=== PATIENT | male | born 1945 | race Caucasian/White ===

== ENCOUNTER 2017-02-25 11:18 | Emergency (ER) | payer OTHER ==
[~2017-02-25] VITALS: Ht 170.2 cm; Wt 109.1 kg
[~2017-02-25 11:18] MED LIST: CMD25 PO; CMD5 PO; CPR500 PO; CYAN100020 PO; FOLI1TAB7 PO; LISI20TA PO; MGNO400 PO; MTR500 PO; TPRSR25 PO
[2017-02-25 11:23] VITALS: TEMP 36.6; Ht 170.2 cm; Wt 109.1 kg
[2017-02-25] MEDS ORDERED: WARF5TAB7 PO ×2 (11:34)
[2017-02-25] MEDS ORDERED: LISI-787 PO (11:34)
--- NOTE | 2017-02-25 12:17 | EMERGENCY ROOM VISIT NOTE ---
History Report prepared by Tarsha: Eliane Wheeler Under the Supervision of: Dr. Darren Hines M.D. First contact with patient: 12:03 Chief Complaint: LA PAIN Stated Complaint: LOWER LEG INJURY-LEFT LA History of Present Illness The patient is a 72 year old male who presents to the Emergency Room with complaints of persistent left la pain that began six days ago. He currently rates his discomfort as a 5/10 in severity. The patient states that Wednesday he was in the bathroom and slipped, noting that he hit is left la off of the bathtub. He states that he has a history of previous pulmonary emboli, noting that he is on Coumadin. The patient states that he has been walking normally and denies any imaging of the area. He denies any head injury, loss of consciousness, shortness of breath, or abdominal pain. The patient states that he was at [facility] today and was sent to the emergency department for further evaluation. Source of History: patient, spouse/significant other Onset: six days ago Position: other (left la) Symptom Intensity: 5/10 Timing: other (persistent) Associated Symptoms: No LOC, No SOB, No abdominal pain Review of Systems See HPI for pertinent positives & negatives. A total of 10 systems reviewed and were otherwise negative. Past Medical & Surgical Medical Problems: (1) H/O blood clots (2) HTN (hypertension) Old medical records were reviewed. Nurse's notes were reviewed and I agree with. Family History Hypertension Social History Smoking Status: Never Smoker Drug Use: none Marital Status: Housing Status: lives with significant other Occupation Status: retired Current/Historical Medications Scheduled Cyanocobalamin (Vitamin B12), 1 TAB PO DAILY Folic Acid (Folvite), 1 MG PO DAILY Lisinopril/Hctz (Zestoretic 20MG/12.5MG), 1 TAB PO DAILY Metoprolol Succinate (Metoprolol Succinate ER), 25 MG PO QAM Warfarin Sod (Jantoven), 5 MG PO WK Warfarin Sod (Jantoven), 2.5 MG PO [id number] Allergies Coded Allergies: No Known Allergies (Unverified , 09/05/15) Physical Exam Vital Signs Date Time Temp Pulse Resp B/P (MAP) Pulse Ox O2 Delivery O2 Flow Rate FiO2 02/25/17 15:08 73 20 143/87 98 02/25/17 14:00 81 20 149/89 94 Room Air 02/25/17 11:23 36.6 80 17 150/77 96 Room Air Physical Exam General: Well developed well nourished non-ill appearing older male, in no acute distress, breathing comfortably on room air. Normal speech HEENT: Normal cephalic atraumatic. Pupils are equal round and reactive to light. Sclerae anicteric. Extraocular movements are intact. Oropharynx is pink with moist mucous membranes. No swelling of the mouth lips or tongue. Neck: Supple with a midline trachea. No meningeal signs or stiffness, no JVD or bruits. No Stridor. Chest: Clear to auscultation bilaterally. No wheezes or rhonchi. No increased work of breathing. Heart: regular rate and rhythm. Abdomen: Soft nontender, nondistended without rebound guarding or rigidity. Extremities: Left lower extremity has bruising and swelling of the la. Foot is pink and well perfused. Normal motor, sensation, and pulses. No cyanosis clubbing or edema. No calf tenderness or assymetry Spine/Back. Non tender to palpation. No CVA tenderness Skin: Good turgor without rashes. Neurologic exam: Cranial nerves two through 12 are intact. Motor and sensation are intact and symmetrical throughout. Medical Decision & Procedures ER Provider Diagnostic Interpretation: Radiology results as stated below per my review and radiologist interpretation: LEFT LOWER EXTREMITY VENOUS DOPPLER HISTORY: Leg swelling/pain COMPARISON STUDY: None. FINDINGS: There is normal compressibility, flow, and augmentation within the left lower extremity deep venous system. There is a 4.3 x 3.3 x 2.4 cm complex fluid collection within the anterior distal lower leg. IMPRESSION: No DVT within the left lower extremity. A 4.3 x 3.2 x 2.4 cm complex fluid collection within the anterior distal lower leg. This likely represents a hematoma. Electronically signed by: Vamsi Florence M.D. 02/25/2017 1:58 PM Dictated Date/Time: 02/25/2017 1:57 PM Laboratory Results 02/25/17 12:43 Red Blood Count 4.36, Mean Corpuscular Volume 102.3, Mean Corpuscular Hemoglobin 34.9, Mean Corpuscular Hemoglobin Concent 34.1, Mean Platelet Volume 9.3, Neutrophils (%) (Auto) 63.2, Lymphocytes (%) (Auto) 19.2, Monocytes (%) ( Auto) 14.3, Eosinophils (%) (Auto) 1.9, Basophils (%) (Auto) 0.8, Neutrophils # (Auto) 7.38, Lymphocytes # (Auto) 2.24, Monocytes # (Auto) 1.67, Eosinophils # ( Auto) 0.22, Basophils # (Auto) 0.09 02/25/17 12:43 02/25/17 13:30 Test 02/25/17 12:43 02/25/17 13:30 White Blood Count 11.67 K/uL (4.8-10.8) Red Blood Count 4.36 M/uL (4.7-6.1) Hemoglobin 15.2 g/dL (14.0-18.0) Hematocrit 44.6 % (42-52) Mean Corpuscular Volume 102.3 fL (80-100) Mean Corpuscular Hemoglobin 34.9 pg (25-34) Mean Corpuscular Hemoglobin Concent 34.1 g/dl (32-36) Platelet Count 254 K/uL (130-400) Mean Platelet Volume 9.3 fL (7.4-10.4) Neutrophils (%) (Auto) 63.2 % Lymphocytes (%) (Auto) 19.2 % Monocytes (%) (Auto) 14.3 % Eosinophils (%) (Auto) 1.9 % Basophils (%) (Auto) 0.8 % Neutrophils # (Auto) 7.38 K/uL (1.4-6.5) Lymphocytes # (Auto) 2.24 K/uL (1.2-3.4) Monocytes # (Auto) 1.67 K/uL (0.11-0.59) Eosinophils # (Auto) 0.22 K/uL (0-0.5) Basophils # (Auto) 0.09 K/uL (0-0.2) RDW Standard Deviation 53.8 fL (36.4-46.3) RDW Coefficient of Variation 14.5 % (11.5-14.5) Immature Granulocyte % (Auto) 0.6 % Immature Granulocyte # (Auto) 0.07 K/uL (0.00-0.02) Anion Gap 8.0 mmol/L (3-11) Est Creatinine Clear Calc Drug Dose 77.5 ml/min Estimated GFR () 86.2 Estimated GFR (Non- 74.3 BUN/Creatinine Ratio 21.6 (10-20) Calcium Level 9.4 mg/dl (8.5-10.1) Prothrombin Time 35.3 SECONDS (9.0-12.0) Prothromb Time International Ratio 3.1 (0.9-1.1) Activated Partial Thromboplast Time 43.5 SECONDS (21.0-31.0) Partial Thromboplastin Ratio 1.7 Chemistry Specimen Hemolysis Laboratory studies as stated above per my review. Medications Administered Medications (Trade) Dose Ordered Sig/Lauren Route Start Time Stop Time Status Last Admin Dose Admin Ondansetron HCl (Zofran Inj) 4 mg NOW STAT IV 02/25/17 12:32 02/25/17 12:33 DC 02/25/17 12:48 4 MG Morphine Sulfate (MoRPHine SULFATE INJ) 2 mg NOW STAT IV 02/25/17 12:32 02/25/17 12:33 DC 02/25/17 12:49 2 MG ED Course 1208: Past medical records reviewed. The patient was evaluated in room C1B, and a complete history and physical examination were performed. 1230: I reevaluated the patient and he is requesting pain medications. 1232: Ordered Morphine Sulfate 2 mg IV, Zofran Inj 4 mg IV. 1450: I reevaluated the patient and he is doing well. I discussed all the exam findings with him and I discussed the treatment plan. He verbalized complete understanding and agreement. He is ready to go home. Medical Decision Differentials include, but are not limited to; hematoma, DVT, compartment syndrome, infection. Medication Reconciliation: I attest that I have personally reviewed the patient' s current medication list. Blood Pressure Screening: Patient was found to have a slightly elevated blood pressure due to circumstances. I do not believe that the patient requires hypertension monitoring. This patient comes in as described above. He injured his leg several days ago and has had a hematoma. He has no evidence to suggest compartment syndrome on exam. He is on Coumadin. Ultrasounds obtained and shows no DVT does have a hematoma there. His INR is therapeutic at 3.1 and may be slightly supratherapeutic. He is not anemic. He has no acute electrolyte or metabolic abnormalities. He feels good and would like to go home. He should continue the current doses of Coumadin but he could eat a salad tonight to bring it down slightly. Again, he has no evidence of compartment syndrome. He should rest ice and elevate. return if: Pain in his toes, numbness or weakness, fever or chills, any new problems or concerns. He was happy with the plan discharge home and she follows regular doctor for recheck in the next couple days. Impression Primary Impression: Hematoma of left lower extremity Additional Impression: Current use of alf anticoagulation Scribe Attestation The scribe's documentation has been prepared under my direction and personally reviewed by me in its entirety. I confirm that the note above accurately reflects all work, treatment, procedures, and medical decision making performed by me. Departure Information Dispostion Home / Self-Care Referrals Bi Urbina, D.O. (PCP) Forms HOME CARE DOCUMENTATION FORM, IMPORTANT VISIT INFORMATION, WORK / SCHOOL INSTRUCTIONS Patient Instructions My [facility] Additional Instructions Rest. Drink plenty of fluids. Ice and elevate and try to stay off of your leg Return if increasing pain or swelling, pain or swelling and your toes or discoloration, fever or chills, any new problems concerns Have your doctor recheck in the next couple days. Your INR slightly elevated at 3.1. Have a salad tonight. Problem Qualifiers
[2017-02-25] MEDS ORDERED: MoRPHine SULFATE 2 MG/ML CARP IV STA (12:32)
[2017-02-25] MEDS ORDERED: ONDANSETRON INJ 2 MG/ML 2 ML VIAL IV STA (12:32)
[2017-02-25 12:53] LABS: BASO % 0.8 %; BASO ABS # 0.09 K/uL (0-0.2); COMPLETE YES; EOS % 1.9 %; HEMATOCRIT 44.6 % (42-52); IG% 0.6 %; LYMPH % 19.2 %; LYMPH ABS # 2.24 K/uL (1.2-3.4); MEAN CELL VOLUME 102.3 fL (80-100); MEAN CORPUSCULAR HEMOGLOBIN 34.9 pg (25-34); MEAN CORPUSCULAR HGB CONC 34.1 g/dl (32-36); MEAN PLATELET VOLUME 9.3 fL (7.4-10.4); MONO % 14.3 %; NEUT % 63.2 %; PLATELET COUNT 254 K/uL (130-400); RED BLOOD COUNT 4.36 M/uL (4.7-6.1); WHITE BLOOD COUNT 11.67 K/uL (4.8-10.8)
[2017-02-25 13:40] LABS: BLOOD UREA NITROGEN 22 mg/dl (7-18); GLUCOSE 90 mg/dl (70-99)
[2017-02-25 13:41] LABS: BUN/CREATININE RATIO 21.6 (10-20); CALCIUM 9.4 mg/dl (8.5-10.1); CARBON DIOXIDE 27 mmol/L (21-32); CHLORIDE 105 mmol/L (98-107); SODIUM 138 mmol/L (136-145)
--- NOTE | 2017-02-25 13:59 | DIAGNOSTIC IMAGING REPORT ---
LEFT LOWER EXTREMITY VENOUS DOPPLER HISTORY: Leg swelling/pain COMPARISON STUDY: None. FINDINGS: There is normal compressibility, flow, and augmentation within the left lower extremity deep venous system. There is a 4.3 x 3.3 x 2.4 cm complex fluid collection within the anterior distal lower leg. IMPRESSION: No DVT within the left lower extremity. A 4.3 x 3.2 x 2.4 cm complex fluid collection within the anterior distal lower leg. This likely represents a hematoma. Electronically signed by: Vamsi Florence M.D. 02/25/2017 1:58 PM Dictated Date/Time: 02/25/2017 1:57 PM
[2017-02-25 14:03] LABS: INR 3.1 (0.9-1.1); PARTIAL THROMBOPLASTIN RATIO 1.7; PROTHROMBIN TIME (PATIENT) 35.3 SECONDS (9.0-12.0)
[2017-02-25 14:10] LABS: POTASSIUM 4.3 mmol/L (3.5-5.1)
[2017-02-25 15:08] VITALS: BP 143/87; PULSE 73; O2SAT 98
== END 2017-02-25 15:10 | disposition home or self-care (01) ==
LOC: C.EDB 11:21 → C.EDC 15:10
DX: S80.12XA Contusion of left lower leg, initial encounter (principal); W01.0XXA Fall on same level from slipping, tripping and stumbling without subsequent striking against object, initial encounter; Y92.012 Bathroom of single-family (private) house as the place of occurrence of the external cause; I10 Essential (primary) hypertension; Z86.718 Personal history of other venous thrombosis and embolism; Z82.49 Family history of ischemic heart disease and other diseases of the circulatory system; Z79.01 Long term (current) use of anticoagulants; Z79.899 Other long term (current) drug therapy

== ENCOUNTER 2021-09-20 18:58 | Inpatient (IN) ==
[2021-09-20] MEDS ORDERED: SODIUM CHLORIDE 0.9% 500 ML IV STA (19:16)
[2021-09-20] MEDS ORDERED: ONDANSETRON INJ 2 MG/ML 2 ML VIAL IV STA (19:16)
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
[2021-09-20] MEDS: MoRPHine SULFATE 4 MG/ML 1 ML CARP\\VIAL IV PRN ×2 (20:06→21:12)
[2021-09-20 20:21] LABS: Basophils # (auto) 0.04 K/uL (0-0.2); Basophils % (auto) 0.2 %; Eosinophils # (auto) 0.01 K/uL (0-0.5); Hematocrit (blood only) 46.2 % (42-52); Hemoglobin 15.5 g/dL (14.0-18.0); Immature Granulocytes # (auto) 0.07 K/uL (0.00-0.02); Immature Granulocytes % (auto) 0.3 %; Lymphocytes # (auto) 0.79 K/uL (1.2-3.4); Lymphocytes % (auto) 3.7 %; Mean Corpuscular Hemoglobin 34.5 pg (25-34); Mean Corpuscular Hgb Conc 33.5 g/dL (32-36); Mean Corpuscular Volume 102.9 fL (80-100); Mean Platelet Volume 9.7 fL (7.4-10.4); Monocytes # (auto) 1.43 K/uL (0.11-0.59); Monocytes % (auto) 6.7 %; Neutrophils # (auto) 18.86 K/uL (1.4-6.5); Neutrophils % (auto) 89.1 %; Platelet Count 272 K/uL (130-400); RDW Coefficient of Variation 15.1 % (11.5-14.5); RDW Standard Deviation 57.1 fL (36.4-46.3); Red Blood Count 4.49 M/uL (4.7-6.1)
--- NOTE | 2021-09-20 20:28 | XRay Report ---
XR chest 1V portable CLINICAL HISTORY: Abdominal pain. Evaluate lung bases. COMPARISON STUDY: 09/05/2015 TECHNIQUE: 1 view of the chest FINDINGS: Single frontal view of the chest demonstrates the cardiomediastinal silhouette to be within normal li mits. There is a decreased inspiratory effort with elevation of the hemidiaphragms and crowding of th e bronchovascular markings at the lung bases and centrally. The lungs are clear of alveolar opacities . Calcified pleural plaque is again seen on the right. There is no evidence for pleural effusion. The re is no evidence for vascular congestion. There is no acute osseous pathology. IMPRESSION: There is a decreased inspiratory effort with otherwise no acute chest disease. ACT 112: Negative or not required by law. Electronically signed by: Fernando Aragon M.D. 09/20/2021 8:27 PM
[2021-09-20] MEDS ORDERED: OPTIRAY 320 100ml IV ONE (20:31)
[2021-09-20 20:41] LABS: Troponin I < 0.03 ng/ml (0-0.04)
[2021-09-20] MEDS ORDERED: PIPERACILLIN/TAZOBACTAM 4.5 GM/120 ML BAG IV ONE (20:41)
[2021-09-20] MEDS ORDERED: PIPERACILL/TAZOBAC CONSULT ACTIVE PRN (20:41)
[2021-09-20 20:43] LABS: Alanine Aminotransferase 14 U/L (7-52); Albumin Globulin Ratio 1.1 (0.9-2); Albumin Level 4.1 gm/dl (3.4-5.0); Alkaline Phosphatase 74 U/L (34-104); Anion Gap 11 (3-11); Aspartate Aminotransferase 15 U/L (13-39); BUN Creatinine Ratio 18.4 (10-20); Bilirubin,Total 0.5 mg/dl (0.2-1.0); Blood Urea Nitrogen 21 mg/dl (6-23); Carbon Dioxide 26 mmol/L (21-32); Chloride 102 mmol/L (98-107); Creatinine Clr Calc Pharmacy 64.9 ml/min; Est GFR (African American) 71.5 ml/min; Est GFR (Non-African American) 61.7 ml/min; Globulin 3.6 gm/dl (2.5-4.0); Glucose 174 mg/dl (70-99); Lipase 17 U/L (11-82); Potassium 4.2 mmol/L (3.5-5.1); Sodium 139 mmol/L (136-145); Total Protein 7.7 gm/dl (6.0-8.3)
[2021-09-20 20:50] LABS: INR 4.7 (0.9-1.1); Partial Thromboplastin Ratio 1.9; Prothrombin Time 42.3 Seconds (9.0-12.0)
--- NOTE | 2021-09-20 20:55 | CT Scan Report ---
CT abd pelvis IV con only CLINICAL HISTORY: Abdominal pain COMPARISON STUDY: 09/05/2015 CT DOSE: 1612.48 mGy.cm TECHNIQUE: Standard CT of the Abdomen and Pelvis was performed with IV contrast. A dose lowering pedro luis hnique was utilized adhering to the principles of ALARA. Contrast Volume: Optiray 320, 96 ml. The patient did not receive oral contrast. FINDINGS: Lung base: There are old rib fractures seen at the right lung base posteriorly with adjacent pleural scarring. The lung bases are otherwise clear. The heart is mildly enlarged with coronary artery calci fication. This also mitral valve calcification versus mitral valve replacement. Abdominal cavity: There is diastases of the anterior abdominal wall muscles with ventral herniation o f the bowel loops and viscera anteriorly. This is unchanged. There is no evidence for abdominal mass, adenopathy or ascites. Liver: There is homogeneous attenuation of the liver parenchyma. There is no evidence for enhancing m ass lesion. Spleen: There is homogeneous attenuation of the splenic parenchyma. There is no enhancing mass lesion . Pancreas: There is homogeneous attenuation of the pancreatic parenchyma. There is no evidence for mas s lesion or peripancreatic fluid collection. Gall Bladder: The gallbladder is well distended with no evidence for intraluminal calculi, wall thick ening or pericholecystic edema. 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 The left adrenal gland is within normal limits. There is no evidence for enhan cing mass lesion. Kidneys: There is homogeneous attenuation of the renal parenchyma bilaterally. There is no evidence f or renal calculus or hydronephrosis. Large right renal cyst is present measuring 5.1 x 4.6 cm. No fur ther follow-up is necessary of this benign finding. There is also a heterogeneously enhancing exophyt ic mass from the left kidney measuring 2.6 x 1.9 cm. Follow-up ultrasound is recommended for further evaluation. Bowel: The stomach is grossly distended with liquid and food stuff. There is mild dilatation of the j ejunum and ileum to the right lower quadrant with evidence for a transition site present characterist ic of an adhesion. There is an decompression of the distal ileum and colon. The findings represent a partial small bowel obstruction. There is again extensive diverticulosis of the sigmoid colon without evidence for diverticulitis. The re are no inflammatory changes present. There is no evidence for free air. Bladder: The bladder is within normal limits with no evidence for focal mass, calculus or diverticulu m. : There is no evidence for pelvic mass or adenopathy. There is no evidence for pelvic ascites. The prostate is mildly enlarged with calcifications present. Vasculature: There is no evidence for aneurysmal dilatation of the abdominal aorta. Osseous structures: There is no acute osseous pathology. Extensive degenerative changes are present w ithin the lumbar spine. IMPRESSION: 1. Evidence for partial small bowel obstruction in the right lower quadrant, most likely related to a dhesions as described above. 2. Diastases of the anterior abdominal wall muscles with chronic herniation of bowel loops in this ri ght anteriorly. This is unchanged. 3. 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 This represents a benign lesion. 4. Heterogeneously enhancing exophytic mass projecting from the left kidney. This could represent a h emorrhagic cyst. Follow-up ultrasound is recommended for further evaluation. 5. Diverticulosis without evidence for diverticulitis. 6. Additional nonacute findings are delineated above. ACT 112: Negative or not required by law. Electronically signed by: Fernando Aragon M.D. 09/20/2021 8:54 PM
[2021-09-20 21:21] LABS: Appearance Urine Clear (Clear); Bacteria Urine Automated Negative (Negative); Bilirubin Urine Negative (Negative); Blood Urine Negative (Negative); Color Urine Yellow; Glucose Urine UA Negative (Negative); Ketones Urine Trace (Negative); Leukocyte Esterase Urine Negative (Negative); Nitrite Urine Negative (Negative); Protein Urine 2+ (Negative); RBC Urine Automated 0-4 /hpf (0-4); Specific Gravity Urine 1.033 (1.000-1.030); Urobilinogen Urine Negative (Negative); WBC Urine Automated 0 /hpf (0-5)
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
--- NOTE | 2021-09-20 21:43 | XRay Report ---
XR KUB/Abdomen 1 view CLINICAL HISTORY: NGT placement. COMPARISON STUDY: No previous studies for comparison. TECHNIQUE: Single view of the abdomen. FINDINGS: The bowel gas pattern within the upper abdomen is within normal limits without evidence for dilatatio n or obstruction. NG tube is in place with its tip in the distal esophagus. It needs to be further ad vanced. There is no evidence for organomegaly or gross intra-abdominal mass. No abnormal calcificatio ns are seen along the course of the urinary tracts bilaterally. No acute osseous pathology. IMPRESSION: 1.NG tube in the distal esophagus. It needs to be further advanced into the stomach. ACT 112: Negative or not required by law. Electronically signed by: Fernando Aragon M.D. 09/20/2021 9:42 PM
--- NOTE | 2021-09-20 21:44 | XRay Report ---
XR KUB/Abdomen 1 view at 9:11 PM CLINICAL HISTORY: NGT placement. COMPARISON STUDY: 09/20/2021 at 9:07 PM TECHNIQUE: Single view of the abdomen. FINDINGS: The bowel gas pattern in the upper abdomen is within normal limits without evidence for dilatation or obstruction. There has been attempted repositioning of NG tube. However, it is now folded upon itsel f within the distal esophagus. There is no evidence for organomegaly or gross intra-abdominal mass. N o abnormal calcifications are seen along the course of the urinary tracts bilaterally. No acute osseo us pathology. IMPRESSION: 1.NG tube is now folded upon itself within the distal esophagus. It still needs to be repositioned. ACT 112: Negative or not required by law. Electronically signed by: Fernando Aragon M.D. 09/20/2021 9:43 PM
[2021-09-20] MEDS ORDERED: METOPROLOL TARTRATE 1 MG/ML VIAL IV STA (22:05)
[2021-09-21] MEDS ORDERED: LORazepam 0.25 MG/0.5 ML VIAL IV STA ×2 (00:27→21:49)
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
[2021-09-21] MEDS ORDERED: MoRPHine SULFATE 2 MG/ML CARP IV PRN (00:32)
[2021-09-21] MEDS ORDERED: ACETAMINOPHEN 1,000 MG/100 ML VIAL IV PRN (00:32)
[2021-09-21] MEDS: SODIUM CHLORIDE 0.9% 1000ML 1,000 ML IV SCH ×2 (00:46→17:19)
[2021-09-21] MEDS ORDERED: PROMETHAZINE HCL 12.5 MG in SODIUM CHLORIDE 0.9% 50 ML IV PRN (01:45)
[2021-09-21] MEDS ORDERED: MAGNESIUM SULFATE / D5W 1 GM/100 ML BAG IV ONE (02:15)
[2021-09-21] MEDS: METOPROLOL TARTRATE 1 MG/ML VIAL IV SCH ×4 (05:31→23:39)
--- NOTE | 2021-09-21 05:32 | Surgery Progress Note ---
Date of Service September 21, 2021 Assessment & Plan (1) SBO (small bowel obstruction): Plan: Patient has been admitted on the medical service. We recommend continuing care as follows: Maintain NG tube to low continuous suction Maintain n.p.o. status Continue IV fluid for hydration Continue analgesics Continue antiemetics Repeat KUB for this morning is pending Leukocytosis noted on labs at time of admission. Labs this morning are pending Will consider slowly advancing diet/removing NG tube once patient's abdominal exam has improved further and his bowel function has returned Remainder of plan as directed by medical service Admission and Anticipated Discharge Date Admission Date: September 21, 2021 Supervising Physician Co-Signing Physician Notes Dr. Batista-patient admitted with partial small bowel obstruction with a history of appendectomy, splenectomy, incisional hernia repair likely with mesh-he has an NG tube in place and does feel somewhat better than admission He does have a protuberant abdomen, somewhat soft but he does have active bowel sounds which is a good sign Continue his NG tube today with bowel rest and IV medications Will check his laboratories including mag and Phos Depending on his progress we may consider a contrast study but not for 24 to 48 hours Subjective Patient is resting comfortably in bed. He notes that since admission and NG tube insertion his abdominal pain has improved slightly. Since NG tube has been placed he has not had any nausea vomiting. He has not had any bowel movement or flatus since admission. Physical Exam Gastrointestinal (Abdomen): Abdomen is rotund and still moderately distended. There appears to be less pain with palpation. Bowel sounds are hypoactive. NG tube is in place which is drained approximately 900 cc since placement in the emergency department. Results & Data ([facility]) Vital Signs (Past 12 Hours) Vital Signs Temp Pulse Pulse Resp BP BP Pulse Ox 09/21/21 03:33 36.5 C 83 20 131/68 96 09/21/21 01:49 36.4 C L 87 18 156/84 H 97 09/21/21 01:40 89 09/20/21 23:00 93 H 16 163/88 H 92 09/20/21 22:39 93 H 158/86 H 09/20/21 22:30 93 H 18 158/86 H 94 09/20/21 22:01 98 H 17 153/87 H 93 09/20/21 20:10 92 H 20 175/98 H 93 09/20/21 19:10 36.4 C L 87 18 197/97 H 98 PG Care Time/CCT Total # of Minutes Spent Total Time Spent with Patient: Total time spent is greater than 50% in coordination of care (as documented) at patient's floor/unit and/or counseling patient: Coding Level of Care Code 28960 Subseq Hosp Care Lvl 1 Diagnoses SBO (small bowel obstruction) K56.609
[2021-09-21 06:40] LABS: Basophils # (auto) 0.02 K/uL (0-0.2); Basophils % (auto) 0.2 %; Eosinophils # (auto) 0.13 K/uL (0-0.5); Eosinophils % (auto) 1.5 %; Hematocrit (blood only) 43.6 % (42-52); Hemoglobin 14.3 g/dL (14.0-18.0); Immature Granulocytes # (auto) 0.01 K/uL (0.00-0.02); Immature Granulocytes % (auto) 0.1 %; Lymphocytes # (auto) 1.48 K/uL (1.2-3.4); Lymphocytes % (auto) 16.5 %; Mean Corpuscular Hgb Conc 32.8 g/dL (32-36); Mean Corpuscular Volume 103.6 fL (80-100); Mean Platelet Volume 9.6 fL (7.4-10.4); Monocytes # (auto) 0.67 K/uL (0.11-0.59); Monocytes % (auto) 7.5 %; Neutrophils # (auto) 6.65 K/uL (1.4-6.5); Neutrophils % (auto) 74.2 %; Platelet Count 278 K/uL (130-400); RDW Coefficient of Variation 15.2 % (11.5-14.5); RDW Standard Deviation 58.5 fL (36.4-46.3); Red Blood Count 4.21 M/uL (4.7-6.1); White Blood Count 8.96 K/uL (4.8-10.8)
[2021-09-21 06:44] LABS: Partial Thromboplastin Ratio 1.8; Prothrombin Time 36.1 Seconds (9.0-12.0)
[2021-09-21 06:47] LABS: Calcium 8.9 mg/dl (8.5-10.1); Est GFR (African American) 70.7 ml/min; Magnesium 1.8 mg/dl (1.7-2.4); Phosphorus 3.6 mg/dl (2.5-4.9); Potassium 4.2 mmol/L (3.5-5.1)
[2021-09-21 06:54] LABS: Partial Thromboplastin Time 46.8 Seconds (21.0-31.0)
[2021-09-21] MEDS: TAMSULOSIN HCL 0.4 MG CAP PO SCH (09:30)
[2021-09-21] MEDS: amLODIPine BESYLATE 5 MG TAB PO SCH (09:30)
[2021-09-21] MEDS: OXYBUTYNIN CHLORIDE 5 MG TAB PO SCH (09:30)
[2021-09-21] MEDS: lisinopril 20 MG TAB PO SCH (09:31)
[2021-09-21] MEDS: FOLIC ACID 400 MCG TAB PO SCH (09:31)
[2021-09-21] MEDS: CEROVITE ADV FORMULA TAB PO SCH ×2 (09:31→22:01)
--- NOTE | 2021-09-21 09:43 | Ultrasound Report ---
US renal/blad retro comp CLINICAL HISTORY: Follow-up left renal cyst seen on CT. COMPARISON: CT of the abdomen and pelvis from 09/20/2021 TECHNIQUE: Multiple grayscale and color images of the kidneys and bladder. FINDINGS: This is a limited examination due to patient's body habitus. Right kidney: The kidney is normal in size and echogenicity. There is no evidence for renal calculus or hydronephrosis. There is a sharply defined simple cyst present measuring 6 x 5.5 x 5.0 cm as seen on CT. No further follow-up is necessary for this benign finding. There is no evidence for solid jose francisco l mass. There is no evidence for medical renal disease. The kidney measures 12.8 cm in greatest lengt h. Left kidney: The kidney is normal in size and echogenicity. There is no evidence for renal calculus o r hydronephrosis. Compared to the CT examination, there is a heterogeneous hypoechoic lesion seen wit hin the left kidney which does not have the appearance of a classic simple cyst. It measures approxim ately 3.8 x 3.0 x 3.0 cm. The presence of a renal neoplasm cannot be excluded and MRI of the kidneys without and with contrast would be recommended for further evaluation. There is no evidence for medic al renal disease. The kidney measures 11.8 cm in greatest length. Bladder: Limited images of the bladder demonstrate no gross abnormality. Bilateral ureteral jets are present. IMPRESSION: 1. Compared to the CT, the lesion within the left kidney appears solid and not cystic. The presence o f a neoplastic process cannot be excluded and follow-up MRI of the kidneys without and with contrast is recommended. ACT 112: Negative or not required by law. Electronically signed by: Fernando Aragon M.D. 09/21/2021 9:41 AM
--- NOTE | 2021-09-21 09:47 | XRay Report ---
XR KUB/Abdomen 1 view CLINICAL HISTORY: Follow-up suspected small bowel obstruction. COMPARISON STUDY: CT of the abdomen and pelvis from 09/20/2021 TECHNIQUE: 2 supine views of the abdomen FINDINGS: Compared to the CT examination, a few mildly dilated air-filled loops of small bowel are seen again c haracteristic of a partial small bowel obstruction. It has not increased since the CT. There is fecal material demonstrated within the right side of the colon. There is no evidence for organomegaly or g ross intra-abdominal mass. No abnormal calcifications are seen along the course of the urinary tracts bilaterally. No acute osseous pathology. IMPRESSION: 1.Mildly dilated air-filled loops of small bowel are again seen corresponding to the partial small sheeba wel obstruction seen on CT. No interval worsening is identified. ACT 112: Negative or not required by law. Electronically signed by: Fernando Aragon M.D. 09/21/2021 9:45 AM
--- NOTE | 2021-09-21 10:03 | Electrocardiogram Report ---
Test Reason : Blood Pressure : / mmHG Vent. Rate : 082 BPM Atrial Rate : 082 BPM P-R Int : 188 ms QRS Dur : 122 ms QT Int : 386 ms P-R-T Axes : 043 002 035 degrees QTc Int : 450 ms Sinus rhythm with occasional Premature ventricular complexes Non-specific intra-ventricular conduction delay Nonspecific ST abnormality Abnormal ECG When compared with ECG of 06-SEP-2015 11:17, No significant change was found Confirmed by Ming Ybarra ([id number]) on 09/21/2021 10:03:28 AM Referred By: REFERRED SELF Confirmed By:Ming Ybarra
--- NOTE | 2021-09-21 13:09 | Hospitalist Progress Note ---
Date of Service September 21, 2021 Assessment & Plan (1) SBO (small bowel obstruction): Plan: Partial Small bowel obstruction Likely secondary to adhesions -CT ABD:Evidence for partial small bowel obstruction in the right lower quadrant, most likely related to adhesions as described above. Diastases of the anterior abdominal wall muscles with chronic herniation of bowel loops in this right anteriorly. This is unchanged. 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 This represents a benign lesion. Heterogeneously enhancing exophytic mass projecting from the left kidney. This could represent a hemorrhagic cyst. Follow-up ultras ound is recommended for further evaluation. Diverticulosis without evidence for diverticulitis. -Conservative management as per surgery Continue NG tube to low continuous suction N.p.o. for now Continue gentle IV fluids Leukocytosis resolved Left Renal Mass: Renal USD:Compared to the CT, the lesion within the left kidney appears solid and not cystic. The presence of a neoplastic process cannot be excluded and follow-up MRI of the kidneys without and with contrast is recommended. 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 Abdominal pain improved Also denies any chest pain, shortness of breath, dizziness No bowel movement or flatus today KUB showed persistent findings of small bowel obstruction Leukocytosis resolved Review of Systems Review of Systems: All systems reviewed & are unremarkable except as noted in Subjective Physical Exam Physical Exam: Physical Exam: Vitals signs as noted above General Appearance:Morbidly obese, no apparent distress Head: normocephalic, Atraumatic , +NG tube Eyes: normal inspection, EOMI Neck: supple, Trachea midline Respiratory/Chest: Normal breath sounds, CTA Cardiovascular: S1, S2, No murmur Abdomen/GI:Soft, Non tender, distended, decreased bowel sounds Extremities/Musculoskeletal:normal inspection, LE edema Neurologic/Psych:AAOX3, grossly no focal neurological deficits Skin: normal color, warm Results & Data Results & Data ([facility]) Vital Signs (Past 12 Hours) Vital Signs Temp Pulse Pulse Pulse Resp BP BP 09/21/21 12:43 128 H 09/21/21 12:12 109 H 124/76 09/21/21 11:06 36.6 C 92 H 18 149/80 H 09/21/21 07:00 36.6 C 89 20 149/75 H 09/21/21 05:30 87 128/75 09/21/21 03:33 36.5 C 83 20 131/68 09/21/21 01:49 36.4 C L 87 18 156/84 H 09/21/21 01:40 89 Pulse Ox 09/21/21 12:43 09/21/21 12:12 09/21/21 11:06 89 L 09/21/21 07:00 96 09/21/21 05:30 95 09/21/21 03:33 96 09/21/21 01:49 97 09/21/21 01:40 Laboratory Results Short CBC 09/20/21 09/21/21 Range/Units 20:05 05:49 WBC 21.20 H 8.96 D (4.8-10.8) K/uL Hgb 15.5 14.3 (14.0-18.0) g/dL Hct 46.2 43.6 (42-52) % Plt Count 272 278 (130-400) K/uL BMP 09/20/21 09/21/21 20:05 05:49 Sodium 139 140 Potassium 4.2 4.2 Chloride 102 105 Carbon Dioxide 26 27 BUN 21 23 Creatinine 1.14 1.15 Glucose 174 H 108 H Calcium 10.0 8.9 Cardiac Enzymes 09/20/21 Range/Units 20:05 Troponin I < 0.03 (0-0.04) ng/ml Liver Function 09/20/21 Range/Units 20:05 Total Bilirubin 0.5 (0.2-1.0) mg/dl AST 15 (13-39) U/L ALT 14 (7-52) U/L Alkaline Phosphatase 74 (34-104) U/L Albumin 4.1 (3.4-5.0) gm/dl Urine 09/20/21 Range/Units 21:00 Urine Color Yellow Urine Appearance Clear (Clear) Urine pH 5.0 (4.5-7.5) Ur Specific [place] 1.033 H (1.000-1.030) Urine Protein 2+ H (Negative) Urine Glucose (UA) Negative (Negative)
[2021-09-22] MEDS: CHLORASEPTIC 1.4% SOLN 180 ML BTL MT PRN ×2 (04:03→09:35)
[2021-09-22] MEDS: METOPROLOL TARTRATE 1 MG/ML VIAL IV SCH ×2 (05:40→12:08)
[2021-09-22] MEDS: SODIUM CHLORIDE 0.9% 1000ML 1,000 ML IV SCH (05:54)
--- NOTE | 2021-09-22 06:26 | Surgery Progress Note ---
Date of Service September 22, 2021 Assessment & Plan (1) SBO (small bowel obstruction): Plan: Patient does have relatively active bowel sounds and is not significantly distended His abdomen is very protuberant and exam may be mildly difficult He has had a significant amount out of his NG tube We will give the patient 1 bottle of contrast via NG tube and obtain a CAT scan to assess transit Of contrast-depending on progress may require laparotomy with lysis of adhesions Continue current care for now Admission and Anticipated Discharge Date Admission Date: September 21, 2021 Subjective Patient wants food and wants to go home NG tube bothering him He had 600 700 out overnight-apparently not much in the way of ice chips or water Mildly tachycardic Review of Systems Review of Systems: All systems reviewed & are unremarkable except as noted in HPI & below Physical Exam Constitutional: well nourished; no acute distress Eyes: + anicteric sclerae Respiratory: normal respiratory effort; no respiratory distress Cardiovascular: Rate/Rhythm: regular rhythm and + tachycardic Gastrointestinal (Abdomen): Patient's abdomen is relatively soft and he does have active bowel sounds Musculoskeletal: Head/Neck/Chest: head atraumatic Skin: no rashes, warm and dry Neurologic: awake Psychiatric: Orientation: alert Results & Data ([facility]) Vital Signs (Past 12 Hours) Vital Signs Temp Pulse Pulse Resp BP BP Pulse Ox 09/22/21 05:40 102 H 169/71 H 09/22/21 03:00 37.3 C 86 20 149/74 H 91 09/21/21 23:39 91 H 166/68 H 09/21/21 23:22 37.4 C 90 18 143/76 H 90 09/21/21 22:20 100 H 09/21/21 19:00 37.2 C 88 20 154/69 H 90 PG Care Time/CCT Total # of Minutes Spent Total Time Spent with Patient: Total time spent is greater than 50% in coordination of care (as documented) at patient's floor/unit and/or counseling patient: Coding Level of Care Code 82713 Inpt Consult Level 3 Diagnoses SBO (small bowel obstruction) K56.609
[2021-09-22 08:12] LABS: Hematocrit (blood only) 42.7 % (42-52); Mean Corpuscular Hemoglobin 34.2 pg (25-34); Mean Corpuscular Hgb Conc 32.8 g/dL (32-36); Mean Corpuscular Volume 104.4 fL (80-100); Mean Platelet Volume 9.2 fL (7.4-10.4); Platelet Count 249 K/uL (130-400); RDW Coefficient of Variation 15.7 % (11.5-14.5); RDW Standard Deviation 60.1 fL (36.4-46.3); Red Blood Count 4.09 M/uL (4.7-6.1); White Blood Count 10.13 K/uL (4.8-10.8)
[2021-09-22 08:24] LABS: INR 2.3 (0.9-1.1); Prothrombin Time 21.9 Seconds (9.0-12.0)
[2021-09-22 08:43] LABS: BUN Creatinine Ratio 21.7 (10-20); Calcium 8.5 mg/dl (8.5-10.1); Est GFR (African American) 78.1 ml/min; Est GFR (Non-African American) 67.4 ml/min; Potassium 3.7 mmol/L (3.5-5.1)
[2021-09-22] MEDS ORDERED: OPTIRAY 320 100ml IV ONE (09:01)
--- NOTE | 2021-09-22 09:30 | CT Scan Report ---
CT abd pelvis oral and IV con CLINICAL HISTORY: Follow-up partial small bowel obstruction. COMPARISON STUDY: 09/20/2021 CT DOSE: 1553.55 mGy.cm TECHNIQUE: Standard CT of the Abdomen and Pelvis was performed with IV contrast. A dose lowering pedro luis hnique was utilized adhering to the principles of ALARA. Contrast Volume: Optiray 320, 95 ml. The patient received oral contrast through his NG tube. FINDINGS: Lung base: There is again old rib fractures the right lung base with adjacent pleural scarring. The h eart is again enlarged with coronary artery calcification. Abdominal cavity: There is no evidence for abdominal mass, adenopathy or ascites. There is again dyer tases of the anterior abdominal wall muscles with ventral herniation of the bowel loops and this run anteriorly. This is again unchanged. Liver: There is homogeneous attenuation of the liver parenchyma. There is no evidence for enhancing m ass lesion. Spleen: There is homogeneous attenuation of the splenic parenchyma. There is no enhancing mass lesion . Pancreas: There is homogeneous attenuation of the pancreatic parenchyma. There is no evidence for mas s lesion or peripancreatic fluid collection. Gall Bladder: The gallbladder is well distended with no evidence for intraluminal calculi, wall thick ening or pericholecystic edema. Adrenal glands: There is again a large myolipoma of the right adrenal gland. There is no evidence for enhancing mass lesion. Kidneys: There is homogeneous attenuation of the renal parenchyma bilaterally. There is no evidence f or renal calculus or hydronephrosis. There is again evidence for large right renal cyst and an enhanc ing exophytic lesion involving the left kidney. This was solid and interval ultrasound and follow-up MRI without and with contrast is again recommended for further evaluation. Bowel: Oral contrast is present throughout the small bowel and into the cecum and colon to the level of the splenic flexure. There has been interval decompression of previously identified partial small bowel obstruction. The bowel loops are now normally placed within the abdomen and pelvis without evid ence for dilatation or obstruction. There is again extensive diverticulosis of the descending and sigmoid colon without evidence for dive rticulitis. There are no inflammatory changes present. There is no evidence for free air. Bladder: The bladder is within normal limits with no evidence for focal mass, calculus or diverticulu m. : There is no evidence for pelvic mass or adenopathy. There is no evidence for pelvic ascites. The prostate is again mildly enlarged. Vasculature: There is no evidence for aneurysmal dilatation of the abdominal aorta. Osseous structures: There is no acute osseous pathology. Degenerative changes are again seen within t he spine. IMPRESSION: 1. Compared to previous examination, there has been interval decompression of the dilated proximal sm all bowel loops with no evidence for small bowel obstruction on the current study. 2. No other significant interval change from the previous examination. 3. There is again a heterogeneously enhancing exophytic mass projecting from the left kidney which wa s demonstrated to be solid by ultrasound. MRI of the kidneys without and with contrast is again recom mended for further evaluation. 4. Additional nonacute findings are delineated above. ACT 112: Positive. There are findings on this exam that require communication between the performing entity and the patient following Patient Test Result Information Act ([place] Act 112) guidelines. Electronically signed by: Fernando Aragon M.D. 09/22/2021 9:29 AM
[2021-09-22] MEDS: FOLIC ACID 400 MCG TAB PO SCH (09:36)
[2021-09-22] MEDS: lisinopril 20 MG TAB PO SCH (09:36)
[2021-09-22] MEDS: amLODIPine BESYLATE 5 MG TAB PO SCH (09:36)
[2021-09-22] MEDS: TAMSULOSIN HCL 0.4 MG CAP PO SCH (09:36)
[2021-09-22] MEDS: OXYBUTYNIN CHLORIDE 5 MG TAB PO SCH (09:36)
--- NOTE | 2021-09-22 11:02 | Surgery Progress Note ---
Date of Service September 22, 2021 Assessment & Plan (1) Abdominal pain: Plan: Patient was given p.o. contrast via the NG tube with CT scan Rapid transit of contrast into the colon with no evidence of bowel obstruction I have written for the NG tube to be removed I have ordered clear liquids Advance diet per medical team Does not appear to need surgical intervention Admission and Anticipated Discharge Date Admission Date: September 21, 2021 Subjective See assessment and plan Results & Data ([facility]) Vital Signs (Past 12 Hours) Vital Signs Temp Pulse Pulse Resp BP BP Pulse Ox 09/22/21 07:38 36.7 C 94 H 18 162/87 H 90 09/22/21 07:12 88 09/22/21 05:40 102 H 169/71 H 09/22/21 03:00 37.3 C 86 20 149/74 H 91 09/21/21 23:39 91 H 166/68 H 09/21/21 23:22 37.4 C 90 18 143/76 H 90 PG Care Time/CCT Total # of Minutes Spent Total Time Spent with Patient: Total time spent is greater than 50% in coordination of care (as documented) at patient's floor/unit and/or counseling patient: Coding Level of Care Code None Diagnoses Abdominal pain R10.84 Abdominal location: generalized (1) Abdominal pain Abdominal location: generalized Qualified Code(s): R10.84 - Generalized abdominal pain
[2021-09-22] MEDS: CEROVITE ADV FORMULA TAB PO SCH ×2 (12:08→21:07)
[2021-09-22] MEDS: METOPROLOL SUCC 25MG EXT REL TAB PO SCH (14:33)
--- NOTE | 2021-09-22 17:17 | Hospitalist Progress Note ---
Date of Service September 22, 2021 Assessment & Plan (1) SBO (small bowel obstruction): Plan: Partial Small bowel obstruction Likely secondary to adhesions -CT ABD:Evidence for partial small bowel obstruction in the right lower quadrant, most likely related to adhesions as described above. Diastases of the anterior abdominal wall muscles with chronic herniation of bowel loops in this right anteriorly. This is unchanged. 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 This represents a benign lesion. Heterogeneously enhancing exophytic mass projecting from the left kidney. This could represent a hemorrhagic cyst. Follow-up ultras ound is recommended for further evaluation. Diverticulosis without evidence for diverticulitis. -Conservative management as per surgery NG tube discontinued Decrease IV fluids Leukocytosis resolved Repeat CT scan showed no obstruction Advance diet as tolerated Appreciate surgery input Repeat KUB tomorrow Left Renal Mass: Renal USD:Compared to the CT, the lesion within the left kidney appears solid and not cystic. The presence of a neoplastic process cannot be excluded and follow-up MRI of the kidneys without and with contrast is recommended. 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, H/O prothrombin gene mutation INR supratherapeutic INR 4.7> 4.0>2.3 No obvious bleeding issues Monitor INR Plan to resume Coumadin tomorrow Prostate cancer S/P Radiation Follows with [facility] urology Prediabetes HbA1C: 12 Jul 2021 Sinus Tachycardia with PVCs H/O sinus arrhythmia Resume metoprolol Monitor DVT Px: INR therapeutic Code Status Full code Admission and Anticipated Discharge Date Admission Date: September 21, 2021 Subjective Patient is seen and examined at bedside States feeling well today + Flatus but no bowel movement Tolerating liquid diet Abdomen less distended Repeat CT abdomen showed no small bowel obstruction NG tube discontinued Patient eager to get discharged Denies any nausea, vomiting, Abdominal pain, chest pain, shortness of breath Review of Systems Review of Systems: All systems reviewed & are unremarkable except as noted in Subjective Physical Exam Physical Exam: Physical Exam: Vitals signs as noted above General Appearance:Morbidly obese, no apparent distress Head: normocephalic, Atraumatic , +NG tube Eyes: normal inspection, EOMI Neck: supple, Trachea midline Respiratory/Chest: Normal breath sounds, CTA Cardiovascular: S1, S2, No murmur Abdomen/GI:Soft, Non tender, Less distended, + bowel sounds Extremities/Musculoskeletal:normal inspection, LE edema Neurologic/Psych:AAOX3, grossly no focal neurological deficits Skin: normal color, warm Results & Data Results & Data ([facility]) Vital Signs (Past 12 Hours) Vital Signs Temp Pulse Pulse Resp BP BP BP 09/22/21 16:26 88 09/22/21 15:14 36.6 C 78 18 152/77 H 09/22/21 12:08 78 184/91 H 09/22/21 11:06 36.7 C 79 18 184/91 H 09/22/21 07:38 36.7 C 94 H 18 162/87 H 09/22/21 07:12 88 09/22/21 05:40 102 H 169/71 H Pulse Ox 09/22/21 16:26 09/22/21 15:14 90 09/22/21 12:08 09/22/21 11:06 90 09/22/21 07:38 90 09/22/21 07:12 09/22/21 05:40 Laboratory Results Short CBC 09/22/21 Range/Units 07:58 WBC 10.13 (4.8-10.8) K/uL Hgb 14.0 (14.0-18.0) g/dL Hct 42.7 (42-52) % Plt Count 249 (130-400) K/uL BMP 09/22/21 07:58 Sodium 142 Potassium 3.7 Chloride 105 Carbon Dioxide 31 BUN 23 Creatinine 1.06 Glucose 109 H Calcium 8.5
[2021-09-22] MEDS ORDERED: MELATONIN 3 MG TAB PO PRN (18:06)
[2021-09-23] MEDS: SODIUM CHLORIDE 0.9% 1000ML 1,000 ML IV SCH (03:20)
[2021-09-23 06:12] LABS: Hematocrit (blood only) 39.5 % (42-52); Hemoglobin 12.9 g/dL (14.0-18.0); Mean Corpuscular Hemoglobin 33.9 pg (25-34); Mean Corpuscular Hgb Conc 32.7 g/dL (32-36); Mean Corpuscular Volume 103.9 fL (80-100); Mean Platelet Volume 9.4 fL (7.4-10.4); Platelet Count 232 K/uL (130-400); RDW Coefficient of Variation 15.4 % (11.5-14.5); RDW Standard Deviation 58.5 fL (36.4-46.3); White Blood Count 9.67 K/uL (4.8-10.8)
[2021-09-23 06:23] LABS: INR 1.6 (0.9-1.1); Prothrombin Time 15.9 Seconds (9.0-12.0)
[2021-09-23 06:33] LABS: BUN Creatinine Ratio 20.2 (10-20); Calcium 8.6 mg/dl (8.5-10.1); Creatinine Clr Calc Pharmacy 82.2 ml/min; Est GFR (African American) 95.6 ml/min; Est GFR (Non-African American) 82.5 ml/min; Magnesium 1.9 mg/dl (1.7-2.4); Potassium 3.3 mmol/L (3.5-5.1)
[2021-09-23] MEDS ORDERED: POTASSIUM CHLORIDE CRTAB 20 MEQ TABCR PO ONE (08:11)
--- NOTE | 2021-09-23 08:24 | Surgery Progress Note ---
Date of Service September 23, 2021 Assessment & Plan (1) Small bowel obstruction: Plan: resolving ok for d/c on low fiber diet for a few days Admission and Anticipated Discharge Date Admission Date: September 21, 2021 Subjective loose BMs, tolerated regular breakfast Physical Exam Gastrointestinal (Abdomen): Inspection/Auscultation: abdomen not distended Percussion/Palpation: abdomen soft; abdomen nontender Results & Data ([facility]) Vital Signs (Past 12 Hours) Vital Signs Temp Pulse Pulse Resp BP BP Pulse Ox 09/23/21 07:22 36.8 C 73 18 134/77 94 09/23/21 06:57 73 09/23/21 05:07 86 09/23/21 03:00 36.9 C 56 L 20 131/76 97 09/22/21 23:00 36.8 C 87 20 132/79 92 PG Care Time/CCT Total # of Minutes Spent Total Time Spent with Patient: Total time spent is greater than 50% in coordination of care (as documented) at patient's floor/unit and/or counseling patient: Coding Level of Care Code 90478 Subseq Hosp Care Lvl 1 Diagnoses Small bowel obstruction K56.609
[2021-09-23] MEDS: OXYBUTYNIN CHLORIDE 5 MG TAB PO SCH (08:32)
[2021-09-23] MEDS: METOPROLOL SUCC 25MG EXT REL TAB PO SCH (08:32)
[2021-09-23] MEDS: TAMSULOSIN HCL 0.4 MG CAP PO SCH (08:33)
[2021-09-23] MEDS: CEROVITE ADV FORMULA TAB PO SCH (08:33)
[2021-09-23] MEDS: lisinopril 20 MG TAB PO SCH (08:33)
[2021-09-23] MEDS: amLODIPine BESYLATE 5 MG TAB PO SCH (08:33)
[2021-09-23] MEDS: FOLIC ACID 400 MCG TAB PO SCH (08:33)
--- NOTE | 2021-09-23 10:31 | XRay Report ---
KUB CLINICAL HISTORY: Small bowel obstruction. COMPARISON STUDY: CT of the abdomen and pelvis September 22, 2021. FINDINGS: Oral contrast from recent CT has now passed into the colon and rectum.. There is contrast w ithin the bladder is well. The bowel gas pattern is within normal limits. There is no radiographic ev idence for a bowel obstruction. Although sensitivity is diminished on this supine exam, there is no e vidence for free air. IMPRESSION: No radiographic evidence for a bowel obstruction. Interval passage of oral contrast into the colon and rectum. ACT 112: Negative or not required by law. Electronically signed by: Rosendo Hodge M.D. 09/23/2021 10:30 AM
[2021-09-23 11:09] VITALS: BP 127/72; PULSE 65; TEMP 97.5; O2SAT 92
--- NOTE | 2021-09-23 11:58 | Hospitalist Progress Note ---
Date of Service September 23, 2021 Assessment & Plan (1) SBO (small bowel obstruction): Plan: Partial Small bowel obstruction Likely secondary to adhesions -CT ABD:Evidence for partial small bowel obstruction in the right lower quadrant, most likely related to adhesions as described above. Diastases of the anterior abdominal wall muscles with chronic herniation of bowel loops in this right anteriorly. This is unchanged. 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 This represents a benign lesion. Heterogeneously enhancing exophytic mass projecting from the left kidney. This could represent a hemorrhagic cyst. Follow-up ultras ound is recommended for further evaluation. Diverticulosis without evidence for diverticulitis. -Conservative management as per surgery NG tube discontinued Decrease IV fluids Leukocytosis resolved Repeat CT scan showed no obstruction Tolerated diet Had BM Appreciate surgery input KUB today showed no bowel obstruction Left Renal Mass: Renal USD:Compared to the CT, the lesion within the left kidney appears solid and not cystic. The presence of a neoplastic process cannot be excluded and follow-up MRI of the kidneys without and with contrast is recommended. 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, H/O prothrombin gene mutation INR supratherapeutic INR 4.7> 4.0>2.3>1.6 No obvious bleeding issues Monitor INR Restarted Coumadin today Advised to follow-up with Coumadin clinic upon discharge Prostate cancer S/P Radiation Follows with [facility] urology Prediabetes HbA1C: 12 Jul 2021 Sinus Tachycardia with PVCs H/O sinus arrhythmia Resume metoprolol Monitor DVT Px: INR therapeutic Code Status Full code Admission and Anticipated Discharge Date Admission Date: September 21, 2021 Subjective Patient is seen and examined at bedside No new complaints Had BM Eager to get discharged Denies any nausea, vomiting, Abdominal pain, chest pain, shortness of breath Review of Systems Review of Systems: All systems reviewed & are unremarkable except as noted in Subjective Physical Exam Physical Exam: Physical Exam: Vitals signs as noted above General Appearance:Morbidly obese, no apparent distress Head: normocephalic, Atraumatic , +NG tube Eyes: normal inspection, EOMI Neck: supple, Trachea midline Respiratory/Chest: Normal breath sounds, CTA Cardiovascular: S1, S2, No murmur Abdomen/GI:Soft, Non tender, + bowel sounds Extremities/Musculoskeletal:normal inspection, LE edema Neurologic/Psych:AAOX3, grossly no focal neurological deficits Skin: normal color, warm Results & Data Results & Data ([facility]) Vital Signs (Past 12 Hours) Vital Signs Temp Pulse Pulse Resp BP BP Pulse Ox 09/23/21 11:51 36.4 C L 65 18 134/77 127/72 92 09/23/21 11:08 36.4 C L 65 18 127/72 92 09/23/21 07:22 36.8 C 73 18 134/77 94 09/23/21 06:57 73 09/23/21 05:07 86 09/23/21 03:00 36.9 C 56 L 20 131/76 97 Laboratory Results Short CBC 09/23/21 Range/Units 05:51 WBC 9.67 (4.8-10.8) K/uL Hgb 12.9 L (14.0-18.0) g/dL Hct 39.5 L (42-52) % Plt Count 232 (130-400) K/uL BMP 09/23/21 05:51 Sodium 140 Potassium 3.3 L Chloride 106 Carbon Dioxide 28 BUN 18 Creatinine 0.89 Glucose 113 H Calcium 8.6
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
[2021-09-23] MEDS ORDERED: WARFARIN SOD 2.5 MG TAB PO SCH (16:00)
== END 2021-09-23 12:37 | disposition home or self-care (01) | DRG 389 ==
LOC: ED 18:58 → 2N 09-21 00:30 → SUATTDRO 09-21 00:30 → 2N 09-21 01:09

== ENCOUNTER 2022-12-31 08:03 | Inpatient (IN) ==
[2022-12-31] MEDS ORDERED: ONDANSETRON INJ 2 MG/ML 2 ML VIAL IV STA (08:26)
[2022-12-31 08:52] LABS: Hematocrit (blood only) 44.7 % (42.0-52.0); Hemoglobin 15.1 g/dl (14.0-18.0); Mean Corpuscular Hemoglobin 32.8 pg (25.0-34.0); Mean Corpuscular Hgb Conc 33.8 g/dL (32.0-36.0); Mean Corpuscular Volume 97.2 fL (80.0-100.0); Mean Platelet Volume 9.5 fL (9.4-12.4); Platelet Count 281 K/uL (130-400); RDW Coefficient of Variation 14.6 % (11.5-14.5); RDW Standard Deviation 51.9 fL (36.4-46.3); White Blood Count 20.22 K/ul (4.8-10.8)
[2022-12-31 09:12] LABS: Basophils # (auto) 0.06 K/uL (0-0.2); Basophils % (auto) 0.3 %; Immature Granulocytes # (auto) 0.06 K/uL (0.01-0.20); Immature Granulocytes % (auto) 0.3 %; Lymphocytes # (auto) 0.29 K/uL (1.2-3.4); Lymphocytes % (auto) 1.4 %; Monocytes # (auto) 1.34 K/uL (0.11-0.59); Monocytes % (auto) 6.6 %; Neutrophils # (auto) 18.47 K/uL (1.40-6.50); Neutrophils % (auto) 91.4 %
[2022-12-31 09:13] LABS: Alanine Aminotransferase 13 U/L (7-52); Albumin Globulin Ratio 1.2 (0.9-2); Albumin Level 4.3 gm/dl (3.4-5.0); Alkaline Phosphatase 76 U/L (34-104); Anion Gap 10 (3-11); Aspartate Aminotransferase 17 U/L (13-39); BUN Creatinine Ratio 22.8 (10-20); Bilirubin,Total 0.6 mg/dl (0.2-1.0); Blood Urea Nitrogen 21 mg/dl (6-23); Calcium 10.3 mg/dl (8.6-10.3); Carbon Dioxide 27 mmol/L (21-32); Chloride 101 mmol/L (98-107); Creatinine Clr Calc Pharmacy 79.8 ml/min; Est GFR (Non-African American) 79.4 ml/min; Globulin 3.6 gm/dl (2.5-4.0); Glucose 154 mg/dl (70-99(Fasting)); Lipase 19 U/L (11-82); Potassium 4.3 mmol/L (3.5-5.1); Sodium 138 mmol/L (136-145); Total Protein 7.9 gm/dl (6.0-8.3)
[2022-12-31] MEDS ORDERED: OPTIRAY 320 100ml IV ONE (09:42)
--- NOTE | 2022-12-31 10:15 | CT Scan Report ---
ABDOMEN AND PELVIS CT WITH IV CONTRAST CT DOSE: 1621.50 mGy.cm HISTORY: Nausea. Vomiting. Generalized abdominal pain. TECHNIQUE: Multiaxial CT images of the abdomen and pelvis were performed following the use of intrave nous contrast. A dose lowering technique was utilized adhering to the principles of ALARA. COMPARISON STUDY: Abdomen and pelvis CT 09/22/2021. FINDINGS: Scarlike densities noted within the lung bases. No pneumoperitoneum. No pneumatosis. No cezar picious lytic or blastic osseous lesions. The heart remains mildly enlarged. Hepatic steatosis. The g allbladder, pancreas, left adrenal gland are unremarkable. There is again noted a 5.3 cm right adrena l myelolipoma. The spleen is absent. There are few small foci of splenic tissue within the left upper quadrant consistent with splenosis. A few right renal cysts are again noted. There is a 16 mm interm ediate density lesion within the right kidney abutting the dominant cyst on image 202. This remains u nchanged. There is a 2.1 cm enhancing lesion within the lower pole the left kidney. This is suspiciou s for renal cell carcinoma. No hydronephrosis. The main portal vein is patent. No retroperitoneal lym phadenopathy. No pelvic lymphadenopathy or pelvic free fluid. The bladder is unremarkable. Colonic di verticulosis. No evidence for acute diverticulitis. Normal appendix. Multiple dilated fluid-filled lo ops of proximal to mid small bowel are noted consistent with a small bowel obstruction. The transitio n point is located within the mid anterior abdomen on image 293. This is nonspecific but likely due t o adhesions. The ileal loops are decompressed. IMPRESSION: 1. Interval development of a small bowel obstruction with the transition point located within the mid anterior abdomen as described above. This favors adhesions. 2. There is a 2.1 cm solid left renal mass which is highly suspicious for renal cell carcinoma. There is also a 1.6 cm intermediate density lesion within the right kidney which could represent a hyperde nse cyst or additional solid renal lesion. Urology consultation and nonemergent renal MRI follow-up r ecommended for further evaluation. 3. Additional findings as described above. ACT 112: Positive. There are findings on this exam that require communication between the performing entity and the patient following Patient Test Result Information Act ([place] Act 112) guidelines. Electronically signed by: Vamsi Florence M.D. 12/31/2022 10:13 AM
[2022-12-31] MEDS ORDERED: MoRPHine SULFATE 2 MG/ML CARP IV STA (10:38)
[2022-12-31] MEDS ORDERED: SODIUM CHLORIDE 0.9% 1000ML 1,000 ML IV ONE (10:40)
[2022-12-31] MEDS ORDERED: ACETAMINOPHEN 1,000 MG/100 ML VIAL IV STA (10:40)
[2022-12-31] MEDS ORDERED: PROMETHAZINE 25 MG/51 ML BAG IV STA (10:40)
[2022-12-31 10:41] LABS: Magnesium 1.5 mg/dl (1.7-2.4)
[2022-12-31 10:48] LABS: Troponin I High Sensitivity 13.4 pg/ml (0-20)
[2022-12-31 11:05] LABS: Prothrombin Time 55.3 Seconds (9.0-12.0)
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
[2022-12-31 11:35] LABS: INR 5.6 (0.9-1.1)
--- NOTE | 2022-12-31 11:39 | XRay Report ---
XR chest 1V portable HISTORY: NG tube placement COMPARISON: Abdomen and pelvis CT 12/31/2022. Chest 09/20/2021. FINDINGS: No pneumothorax. Bibasilar linear densities favor scarring. The heart is mildly enlarged. T here are old, healed right-sided rib fractures. No new focal lung consolidations to suggest a pneumon ia. The nasogastric tube terminates in the stomach. IMPRESSION: The nasogastric tube terminates in the stomach. ACT 112: Negative or not required by law. Electronically signed by: Vamsi Florence M.D. 12/31/2022 11:38 AM
[2022-12-31] MEDS ORDERED: METOPROLOL TARTRATE 1 MG/ML VIAL IV PRN (12:12)
[2022-12-31] MEDS ORDERED: CHLORASEPTIC 1.4% SOLN 180 ML BTL MT PRN (12:22)
[2022-12-31] MEDS ORDERED: PIPERACILLIN/TAZOBACTAM 4.5 GM (over 30 mins) IV ONE (12:30)
[2022-12-31] MEDS: MAGNESIUM SULFATE / D5W 1 GM/100 ML BAG IV SCH ×2 (12:52→15:23)
[2022-12-31] MEDS ORDERED: LABETALOL HCL IV 5 MG/ML 20ML IV PRN ×2 (13:55→16:36)
--- NOTE | 2022-12-31 14:52 | Emergency Department Note ---
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 the left upper quadrant consistent with splenosis. A few right renal cysts are again noted. There is a 16 mm intermediate density lesion within the right kidney abutting the dominant cyst on image 202. This remains unchanged. There is a 2.1 cm enhancing lesion within the lower pole the left kidney. This is suspicious for renal cell carcinoma. No hydronephrosis. The main portal vein is patent. No retroperitoneal lymphadenopathy. No pelvic lymphadenopathy or pelvic free fluid. The bladder is unremarkable. Colonic diverticulosis. No evidence for acute diverticulitis. Normal appendix. Multiple dilated fluid-filled loops of proximal to mid small bowel are noted consistent with a small bowel obstruction. The transition point is located within the mid anterior abdomen on image 293. This is nonspecific but likely due to adhesions. The ileal loops are decompressed. IMPRESSION: 1. Interval development of a small bowel obstruction with the transition point located within the mid anterior abdomen as described above. This favors adhesions. 2. There is a 2.1 cm solid left renal mass which is highly suspicious for renal cell carcinoma. There is also a 1.6 cm intermediate density lesion within the right kidney which could represent a hyperdense cyst or additional solid renal lesion. Urology consultation and nonemergent renal MRI follow-up recommended for further evaluation. 3. Additional findings as described above. ACT 112: Positive. There are findings on this exam that require communication between the performing entity and the patient following Patient Test Result Information Act ([place] Act 112) guidelines. Electronically signed by: Vamsi Florence M.D. 12/31/2022 10:13 AM Chest X-Ray 12/31/22 11:17 XR chest 1V portable HISTORY: NG tube placement COMPARISON: Abdomen and pelvis CT 12/31/2022. Chest 09/20/2021. FINDINGS: No pneumothorax. Bibasilar linear densities favor scarring. The heart is mildly enlarged. There are old, healed right-sided rib fractures. No new focal lung consolidations to suggest a pneumonia. The nasogastric tube terminates in the stomach. IMPRESSION: The nasogastric tube terminates in the stomach. ACT 112: Negative or not required by law. Electronically signed by: Vamsi Florence M.D. 12/31/2022 11:38 AM Discharge Plan Visit Data Chief Complaint: Abdominal Pain ED Provider: Zoran Silva Discharge Problem: Small bowel obstruction, Abdominal pain, Leukocytosis, Intractable nausea and vomiting Patient Disposition: Admitted As Inpatient Discharge Instructions Interventions: ED Discharge Assessment Last Done: 12/31/22 18:08
[2022-12-31] MEDS ORDERED: ONDANSETRON INJ 2 MG/ML 2 ML VIAL IV PRN (15:00)
[2022-12-31] MEDS: SODIUM CHLORIDE 0.9% 1000ML 1,000 ML IV SCH (15:23)
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
[2022-12-31] MEDS: MoRPHine SULFATE 2 MG/ML CARP IV PRN (18:42)
[2022-12-31] MEDS: PIPERACILLIN/TAZOBACTAM 4.5 GM in DEXTROSE 5% 100 ML IV SCH (19:51)
[2023-01-01] MEDS: MoRPHine SULFATE 2 MG/ML CARP IV PRN ×2 (01:40→05:45)
[2023-01-01 03:34] LABS: Appearance Urine Clear (Clear); Bacteria Urine Automated Negative (Negative); Bilirubin Urine Negative (Negative); Blood Urine Negative (Negative); Color Urine Yellow; Glucose Urine UA Negative (Negative); Ketones Urine Negative (Negative); Leukocyte Esterase Urine Negative (Negative); Nitrite Urine Negative (Negative); Protein Urine 2+ (Negative); RBC Urine Automated 0-4 /hpf (0-4); Specific Gravity Urine 1.045 (1.000-1.030); Urobilinogen Urine Negative (Negative)
[2023-01-01] MEDS: PIPERACILLIN/TAZOBACTAM 4.5 GM in DEXTROSE 5% 100 ML IV SCH ×3 (04:13→19:58)
--- NOTE | 2023-01-01 04:55 | Electrocardiogram Report ---
Test Reason : Blood Pressure : / mmHG Vent. Rate : 105 BPM Atrial Rate : 105 BPM P-R Int : 186 ms QRS Dur : 104 ms QT Int : 344 ms P-R-T Axes : 080 -06 022 degrees QTc Int : 454 ms Poor data quality, interpretation may be adversely affected Sinus tachycardia with Premature ventricular complexes Left ventricular hypertrophy with repolarization abnormality Abnormal ECG When compared with ECG of 20-SEP-2021 19:08, QRS duration has decreased Confirmed by Naveen Maciel ([id number]) on 01/01/2023 4:55:23 AM Referred By: Confirmed By:Naveen Maciel
--- NOTE | 2023-01-01 07:09 | XRay Report ---
KUB HISTORY: NG Tube Placement Verification COMPARISON: Abdomen and pelvis CT 12/31/2022. FINDINGS: The nasogastric tube terminates in the stomach. Mildly dilated gas-filled loops of small sheeba wel again noted consistent with a small bowel obstruction. No renal calculi. No ureteral calculi. No pneumoperitoneum or pneumatosis. IMPRESSION: The nasogastric tube terminates in the stomach. ACT 112: Negative or not required by law. Electronically signed by: Vamsi Florence M.D. 01/01/2023 7:08 AM
[2023-01-01 08:03] LABS: Hemoglobin 13.3 g/dl (14.0-18.0); Mean Corpuscular Hemoglobin 32.7 pg (25.0-34.0); Mean Corpuscular Hgb Conc 33.3 g/dL (32.0-36.0); Mean Corpuscular Volume 98.3 fL (80.0-100.0); Mean Platelet Volume 9.3 fL (9.4-12.4); Platelet Count 248 K/uL (130-400); RDW Coefficient of Variation 14.8 % (11.5-14.5); RDW Standard Deviation 53.9 fL (36.4-46.3); Red Blood Count 4.07 M/uL (4.70-6.10); White Blood Count 7.64 K/ul (4.8-10.8)
[2023-01-01 08:15] LABS: BUN Creatinine Ratio 24.8 (10-20); Calcium 8.8 mg/dl (8.6-10.3); Creatinine Clr Calc Pharmacy 69.3 ml/min; Est GFR (African American) 78.4 ml/min; Est GFR (Non-African American) 67.7 ml/min; Magnesium 1.9 mg/dl (1.7-2.4); Potassium 4.1 mmol/L (3.5-5.1)
[2023-01-01] MEDS ORDERED: HYDROmorphone INJ 0.5 MG/0.5 ML SYR IV PRN (08:25)
[2023-01-01 10:53] LABS: INR 4.9 (0.9-1.1); Prothrombin Time 48.4 Seconds (9.0-12.0)
[2023-01-01] MEDS: SODIUM CHLORIDE 0.9% 1000ML 1,000 ML IV SCH (11:12)
[2023-01-01] MEDS ORDERED: hydrALAZINE HCL 20 MG/ML VIAL IV PRN (11:30)
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
[2023-01-01] MEDS ORDERED: METOPROLOL TARTRATE 1 MG/ML VIAL IV ONE (13:04)
[2023-01-01] MEDS: METOPROLOL TARTRATE 1 MG/ML VIAL IV SCH ×2 (13:20→19:57)
--- NOTE | 2023-01-01 13:53 | Electrocardiogram Report ---
Test Reason : Blood Pressure : / mmHG Vent. Rate : 098 BPM Atrial Rate : 098 BPM P-R Int : 186 ms QRS Dur : 122 ms QT Int : 352 ms P-R-T Axes : 067 -07 025 degrees QTc Int : 449 ms Sinus rhythm with occasional Premature ventricular complexes Left ventricular hypertrophy with QRS widening Abnormal ECG When compared with ECG of 31-DEC-2022 08:20, ST no longer depressed in Anterior leads Confirmed by Dominic De Luna ([id number]) on 01/01/2023 1:53:08 PM Referred By: REFERRED SELF Confirmed By:Dominic De Luna
[2023-01-02] MEDS: METOPROLOL TARTRATE 1 MG/ML VIAL IV SCH ×4 (01:01→19:45)
[2023-01-02] MEDS: PIPERACILLIN/TAZOBACTAM 4.5 GM in DEXTROSE 5% 100 ML IV SCH ×2 (03:06→11:39)
--- NOTE | 2023-01-02 06:11 | Surgery Progress Note ---
Date of Service January 02, 2023 Assessment & Plan (1) Intractable nausea and vomiting: Plan: We will try clamping NG tube We will give patient ice chips and try to monitor how much Would not remove NG tube yet as he did have significant output Some return of bowel function with flatus Encourage ambulation of possible Admission and Anticipated Discharge Date Admission Date: December 31, 2022 Subjective Patient does not complain of any pain Apparently passed some flatus NG with approximately 400 cc overnight Patient wants NG tube out-we will keep in for now Review of Systems Review of Systems: All systems reviewed & are unremarkable except as noted in HPI & below Physical Exam Physical Exam: Patient awake and alert in no distress No abdominal pain Patient sitting in chair with abdomen distended but he does have some decreased bowel sounds Nontender Skin is warm Results & Data Vital Signs (Past 12 Hours) Vital Signs Temp Pulse Pulse Resp BP BP Pulse Ox 01/02/23 02:23 36.7 C 82 18 136/76 92 01/01/23 23:42 81 01/01/23 23:15 36.8 C 83 16 141/80 H 97 01/01/23 20:07 01/01/23 19:57 85 137/79 01/01/23 19:40 36.7 C 85 20 137/79 96 O2 Del Method O2 Flow Rate 01/02/23 02:23 Nasal Cannula 2 01/01/23 23:42 01/01/23 23:15 Nasal Cannula 2 01/01/23 20:07 Nasal Cannula 2 01/01/23 19:57 01/01/23 19:40 Nasal Cannula 2 PG Care Time/CCT Total # of Minutes Spent Total Time Spent with Patient: Total time spent is greater than 50% in coordination of care (as documented) at patient's floor/unit and/or counseling patient: Coding Level of Care Code 52930 SUB INP/OBS CARE 2/35MIN Diagnoses Intractable nausea and vomiting R11.2
[2023-01-02 07:39] LABS: Hematocrit (blood only) 39.7 % (42.0-52.0); Hemoglobin 12.8 g/dl (14.0-18.0); Mean Corpuscular Hemoglobin 32.9 pg (25.0-34.0); Mean Corpuscular Hgb Conc 32.2 g/dL (32.0-36.0); Mean Corpuscular Volume 102.1 fL (80.0-100.0); Mean Platelet Volume 9.8 fL (9.4-12.4); Platelet Count 247 K/uL (130-400); RDW Coefficient of Variation 15.1 % (11.5-14.5); RDW Standard Deviation 56.6 fL (36.4-46.3); Red Blood Count 3.89 M/uL (4.70-6.10); White Blood Count 9.65 K/ul (4.8-10.8)
[2023-01-02 07:53] LABS: BUN Creatinine Ratio 24.5 (10-20); Calcium 8.8 mg/dl (8.6-10.3); Est GFR (African American) 77.5 ml/min; Est GFR (Non-African American) 66.9 ml/min; Phosphorus 2.6 mg/dl (2.5-4.9)
[2023-01-02 08:12] LABS: INR 4.4 (0.9-1.1); Prothrombin Time 44.1 Seconds (9.0-12.0)
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
[2023-01-02] MEDS: ACETAMINOPHEN 1,000 MG/100 ML VIAL IV PRN (19:46)
[2023-01-02] MEDS ORDERED: LORazepam 0.5 MG TAB SL STA ×2 (20:14→23:12)
[2023-01-03] MEDS: METOPROLOL TARTRATE 1 MG/ML VIAL IV SCH ×2 (01:12→08:10)
[2023-01-03] MEDS ORDERED: MINERAL OIL 30 ML UDC PO ONE (06:37)
--- NOTE | 2023-01-03 06:42 | Surgery Progress Note ---
Date of Service January 03, 2023 Assessment & Plan (1) Abdominal pain: Plan: Does not have abdominal pain Will remove NG tube and try limited liquids Give a dose of senna syrup and mineral oil prior to removing NG tube Slowly advance diet as tolerated Admission and Anticipated Discharge Date Admission Date: December 31, 2022 Subjective Awake and alert Did move his bowels and is passing flatus Much less out of NG tube No abdominal pain Review of Systems Review of Systems: All systems reviewed & are unremarkable except as noted in HPI & below Physical Exam Physical Exam: Patient awake and alert in no distress No abdominal pain Moderate distention but does have bowel sounds and seems to be baseline Nontender Skin is warm Results & Data Vital Signs (Past 12 Hours) Vital Signs Temp Pulse Pulse Resp BP BP Pulse Ox 01/03/23 03:00 86 L 01/03/23 03:02 36.7 C 87 18 147/96 H 93 01/03/23 01:12 72 129/68 01/02/23 22:00 72 01/02/23 22:42 36.6 C 72 18 129/68 96 01/02/23 19:45 78 169/81 H 01/02/23 19:40 36.6 C 78 20 169/81 H 98 O2 Del Method O2 Flow Rate 01/03/23 03:00 Room Air 01/03/23 03:02 Nasal Cannula 2 01/03/23 01:12 01/02/23 22:00 01/02/23 22:42 Room Air 01/02/23 19:45 01/02/23 19:40 Room Air PG Care Time/CCT Total # of Minutes Spent Total Time Spent with Patient: Total time spent is greater than 50% in coordination of care (as documented) at patient's floor/unit and/or counseling patient: Coding Level of Care Code 69140 SUB INP/OBS CARE 1/25MIN Diagnoses Abdominal pain R10.9
[2023-01-03] MEDS: SENNOSIDES 8.8 MG/5 ML UDC PO SCH ×2 (07:40→20:16)
[2023-01-03 08:04] LABS: BUN Creatinine Ratio 28.6 (10-20); Calcium 8.6 mg/dl (8.6-10.3); Creatinine Clr Calc Pharmacy 78.8 ml/min; Est GFR (African American) 93.2 ml/min; Est GFR (Non-African American) 80.4 ml/min; Potassium 3.6 mmol/L (3.5-5.1)
[2023-01-03] MEDS: ACETAMINOPHEN 1,000 MG/100 ML VIAL IV PRN (08:10)
[2023-01-03 08:17] LABS: INR 3.8 (0.9-1.1); Prothrombin Time 38.1 Seconds (9.0-12.0)
[2023-01-03] MEDS ORDERED: COLCHICINE 0.6 MG TAB PO ONE (09:10)
[2023-01-03] MEDS ORDERED: TAMSULOSIN HCL 0.4 MG CAP PO SCH ×2 (09:15→21:00)
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
[2023-01-03] MEDS: METOPROLOL SUCC 25MG EXT REL TAB PO SCH (11:09)
[2023-01-03] MEDS: amLODIPine BESYLATE 5 MG TAB PO SCH (11:09)
[2023-01-03] MEDS: COLCHICINE 0.6 MG TAB PO SCH (20:14)
[2023-01-03] MEDS ORDERED: ACETAMINOPHEN 325 MG TAB PO PRN (20:42)
[2023-01-03] MEDS ORDERED: MELATONIN 3 MG TAB PO PRN (20:42)
[2023-01-04 06:57] LABS: BUN Creatinine Ratio 23.5 (10-20); Calcium 8.7 mg/dl (8.6-10.3); Creatinine Clr Calc Pharmacy 84.2 ml/min; Est GFR (African American) 96.7 ml/min; Est GFR (Non-African American) 83.5 ml/min; Potassium 3.4 mmol/L (3.5-5.1)
[2023-01-04 07:12] LABS: INR 3.6 (0.9-1.1); Prothrombin Time 36.5 Seconds (9.0-12.0)
[2023-01-04] MEDS ORDERED: POTASSIUM CHLORIDE CRTAB 20 MEQ TABCR PO ONE (07:35)
[2023-01-04] MEDS: SENNOSIDES 8.8 MG/5 ML UDC PO SCH (07:40)
[2023-01-04] MEDS: amLODIPine BESYLATE 5 MG TAB PO SCH (07:42)
[2023-01-04] MEDS: COLCHICINE 0.6 MG TAB PO SCH (07:42)
[2023-01-04] MEDS: METOPROLOL SUCC 25MG EXT REL TAB PO SCH (07:43)
[2023-01-04 11:25] VITALS: BP 141/76; PULSE 76; TEMP 97.5; O2SAT 96
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
--- NOTE | 2023-01-04 13:11 | Surgery Progress Note ---
Date of Service January 04, 2023 Assessment & Plan (1) SBO (small bowel obstruction): Plan: His small bowel obstruction has resolved. He is passing flatus and bowel movements, tolerating a regular diet. He denies any pain. He may be discharged to home when ready from the medical perspective. Surgery will sign off. Call with any questions or concerns. Admission and Anticipated Discharge Date Admission Date: December 31, 2022 Subjective Doing well. Tolerating regular diet. He has had multiple bowel movements yesterday and today. Continues to pass flatus. Denies any pain. No nausea or vomiting. Physical Exam Physical Exam: AFVSS A&O x3, NAD Abdomen: Soft, nontender, nondistended Results & Data Vital Signs (Past 12 Hours) Vital Signs Temp Pulse Pulse Resp BP Pulse Ox O2 Del Method 01/04/23 12:48 36.4 C L 76 18 141/76 H 96 01/04/23 11:25 36.4 C L 76 18 141/76 H 96 Room Air 01/04/23 08:03 Room Air 01/04/23 07:24 36.8 C 81 18 134/62 94 Room Air 01/04/23 07:19 89 01/04/23 02:35 36.6 C 72 18 143/72 H 94 Room Air
== END 2023-01-04 13:28 | disposition home or self-care (01) | DRG 389 ==
LOC: ED 08:03 → 2N 15:01 → SUATTDRO 15:01 → 2N 18:08 → 2E 01-01 13:06